=== PATIENT | female | born 1995 | race Caucasian/White ===

== ENCOUNTER 2021-05-14 18:34 | Emergency (ER) | payer SELFPAY | END 2021-05-14 22:04 | disposition left against medical advice (07) | PROVIDERS: Emergency Provider Emergency Medicine; PCP Nurse Practitioner Family | DX: R21 Rash and other nonspecific skin eruption (principal) ==

== ENCOUNTER 2021-05-29 15:21 | Emergency (ER) | payer OTHER, SELFPAY ==
[2021-05-29 16:14] VITALS: BP 129/87; PULSE 76; RESP 18; TEMP 36.7; O2SAT 100; BMI 26.2
[2021-05-29] MEDS: Acetaminophen 325 MG TABLET 650 MG PO (20:14)
--- NOTE | 2021-05-29 20:18 | ED_ITS ---
HPI - Headache General Chief Complaint: Headache Stated Complaint: migraine Time Seen by Provider: 05/29/21 17:24 Source: patient Mode of arrival: ambulatory Limitations: no limitations History of Present Illness MD elicited complaint: headache and migraine Pertinent past history: migraines Onset (ago): day(s) (4) Onset description: gradually Location: frontal Severity: moderate Quality & Timing: throbbing Exacerbating factors: movement of head/neck, light and noise Relieving factors: nothing Context: occurred at rest Associated symptoms: nausea, vomiting and photophobia Treatments prior to arrival: none Related Data Previous Rx's Medication Instructions Recorded [id number]-[id number]-mcayetnb 1 tab PO Q6H PRN #20 tab 05/29/21 50 mg-325 mg-40 mg tablet cyclobenzaprine 10 mg tablet 10 mg PO TID PRN #14 tab 05/29/21 ondansetron 4 mg disintegrating 4 mg PO Q8H PRN #20 tab 05/29/21 tablet Allergies Allergy/AdvReac Type Severity Reaction Status Date / Time No Known Allergies Allergy Verified 05/29/21 16:13 Review of Systems Review of Systems: Constitutional : No Fever, No Chills, No Fatigue ENT/Mouth : No sore throat, No Rhinorrhea Eyes: No Eye Pain, No Swelling, No Redness, pos photophobia Cardiovascular : No Chest Pain, No SOB, No Dyspnea on Exertion Respiratory : No Cough, No Sputum Gastrointestinal : pos Nausea, pos Vomiting, pos Diarrhea, No abdominal Pain Genitourinary : No Dysuria, No Urinary Frequency, No Hematuria, Musculoskeletal : No joint pain, No Myalgias, No Joint Swelling Skin : No Skin Lesions, No rash Neuro : No Weakness, No Numbness, No Dizziness, positive Headache Psych : No Anxiety/Panic, No Depression Heme/Lymph: No Bruising, No Bleeding,No Lymphadenopathy Endocrine : No Polyuria, No Polydipsia All other systems reviewed and are negative [facility] Past Medical History Attestation statement: The following information was validated with the patient. Medical History Migraines Social History Social History (Updated 05/29/21 @ 20:37 by Sonya Vigil DO) Patient Tobacco Use Status: Never used Tobacco Use of substances other than those prescribed or required for medical reasons: No Advance Directives: Yes Advance Directives Information Provided: Yes Advance Directives on File: No Patient : No Physical Exam Vital Signs: Vital Signs: Last Vital Signs Temp 98.1 F 05/29/21 16:14 Pulse 76 05/29/21 16:14 Resp 18 05/29/21 16:14 BP 129/87 05/29/21 16:14 Pulse Ox 100 05/29/21 16:14 Body Mass Index 26.2 Appearance: Alert. Oriented X3. No acute distress. Eyes: Pupils equal, round and reactive to light. ENT: Pharynx normal. Neck: Normal inspection. Neck supple. no meningeal signs CVS: Normal heart rate and rhythm. Pulses normal. Respiratory: No respiratory distress. Breath sounds normal. Abdomen: Soft and non-tender. Skin: Skin warm and dry. Normal skin color. Normal skin turgor. Extremities: No lower extremity edema. No calf ttp Neuro: Oriented X 3. No motor deficit. No sensory deficit. Course Course Course Narrative: feels better stable for DC MDM - Headache MDM Narrative Medical decision making narrative: 25 yo female no AC therapy here with c/o migraine headache for 4 days no fevers, no AC therapy hx of same in the past - typical migraine at this time will hydrate and provider medications, dispo per improvement given features doubt SAH/[employer] infection. Discharge Plan Discharge Clinical Impression: Migraine Qualifiers: Migraine type: without aura Status migrainosus presence: without status migrai nosus Intractability: not intractable Qualified Code(s): G43.009 - Migraine without aura, not intractable, without status migrainosus Patient Disposition: Home, Self-Care Instructions: Migraine Headache (ED) Additional Instructions: return to ED for any worsening symptoms or concerns topiramate can help prevent daily headaches Prescriptions: New cyclobenzaprine 10 mg tablet 10 mg PO TID PRN (Reason: muscle spasm) Qty: 14 RF: 0 fwfwurfjce-usjubbczdtsxx-tfrd 50-325-40 mg tablet 1 tab PO Q6H PRN (Reason: pain) Qty: 20 RF: 0 ondansetron 4 mg tablet,disintegrating 4 mg PO Q8H PRN (Reason: nausea and vomiting) Qty: 20 RF: 0 Stand Alone Forms: Work/School Release
[2021-05-29] MEDS: diphenhydrAMINE HCL 50 MG/ML VIAL 25 MG IVPUSH (20:53)
[2021-05-29] MEDS: Ketorolac Tromethamine 15 MG/ML VIAL 30 MG IVPUSH (20:55)
[2021-05-29] MEDS: Metoclopramide HCl 10 MG/2 ML VIAL IVPUSH (20:58)
[2021-05-29] MEDS: 0.9 % Sodium Chloride 1,000 ML 999 ML IV (21:02)
[2021-05-29 21:32] VITALS: RESP 16
== END 2021-05-29 22:14 | disposition home or self-care (01) ==
PROVIDERS: Emergency Provider Emergency Medicine
DX: G43.009 Migraine without aura, not intractable, without status migrainosus (principal)
CPT/HCPCS: 96361; 96374; 96375; 99283; 99284; J1200; J1885; J2765

== ENCOUNTER → 2022-03-05 14:05 | Outpatient (BNVA) | payer SELFPAY | DX: Z02.83 Encounter for blood-alcohol and blood-drug test (principal) ==

== ENCOUNTER 2025-07-13 13:19 | Outpatient (REF) | payer OTHER, SELFPAY ==
--- OUTSIDE RECORDS SUMMARY | 2025-07-12 13:15 | XMS_ITS | Encounter Summary ---
Author Organization [employer] Address [address] [place] [address] 7 [place] [address] Care Team Providers Care Infrastructure Technician Name Role Phone Wanda Urena Primary Care Provider [phone] Reason for Visit * Reason Comments Annual Exam Facial Pain Encounter Details Date Type Department Care Team ([facility] st Contact Info) Description 07/12/2025 1:15 PM EST Office Visit [facility] [address], [place] [phone] Wanda Urena FNP [address] [place] [address] Encounter for routine history and physical examination of adult (Primary Dx); Healthcare maintenance; Migraine without status migrainosus, not intractable, unspecified migraine type; Dietary counseling; Exercise counseling; Carrier of spinal muscular atrophy; History of spinal fusion for scoliosis; Acute non-recurrent frontal sinusitis Social History Tobacco Use Types Packs/Day Years Used Date Smoking Tobacco: Never Smokeless Tobacco: Never Tobacco Cessation:Counseling Given: Not Answered Depression Answer Date Recorded Patient Health Questionnaire-9 Score 0 07/12/2025 Patient Health Questionnaire-9 Score 0 07/12/2025 Last PHQ-9: Questionnaire Data Not on file 1 Housing Stability Answer Date Recorded What is your housing situation today? I have jarvis nowak 07/02/[address] you li ve. Do you have problems with any of the following? None of the above 07/02/2024 Food Insecurity Answer Date Recorded Within the past 12 months, y ou worried that your food would run out before you got money to buy more: Never True 07/02/2024 Within the past 12 months,th e food you bought just didn't last and you didn't have enough money to get more: Never True Transportation Answer Date Recorded In the past 12 months, has l ack of transportation kept you from medical appts, meetings, work or from getting things needed for daily living? No 07/02/2024 Utilities Answer Date Recorded In the past 12 months, has t he electric, gas, oil or water company threatened to shut off services in your home? No 07/02/2024 Depression Answer Date Recorded Patient Health Questionnaire-2 Score 0 07/12/2025 Internet Access Answer Date Recorded Internet Access Q1 Yes 07/02/2024 Internet Access Q2 Not on file 07/02/2024 Comments No Intention Date Recorded No desire to become (finding) 1 Sex and Gender Information Value Date Recorded Sex Assigned at Female 05/14/2022 10:17 AM EDT Legal Sex Female 10:17 AM EDT Gender Identity Female 05/14/2022 10:17 AM EDT Sexual Orientation Straight 05/14/2022 10 :17 AM EDT documented as of this encounter Last Filed Vital Signs Vital Sign Reading Time Taken Comments Blood Pressure 113/75 07/12/2025 1:29 PM EST Pulse 82 07/12/2025 1:29 PM EST Temperature 36.2 C (97.1 F) 07/12/2025 1:29 PM EST Respiratory Rate 18 07/12/2025 1:29 PM EST Oxygen Saturation - - Inhaled Oxygen Concentration - - Weight 93 kg (205 lb) 07/12/2025 1:29 PM EST Height 166.4 cm (5' 5.5 ) 07/12/2025 1:29 PM EST Body Mass Index 33.59 07/12/2025 1:29 PM EST documented in this encounter Functional Status * SBIRT - Alcohol Question Answer Date of Assessment Author How many times in the past y ear have you had 5 or more (for men) or 4 or more (for women) drinks in a day? 0 07/12/2025 1:27 PM EST Conchita Watts MA Score 0 07/12/2025 1:27 PM Conchita Elena MA * SBIRT - Drugs Question Answer Date of Assessment Author How many times in the past y ear have you used an illegal drug or used a prescription medication for non-medical reasons? 0 07/12/2025 1:27 PM Conchita Elena MA Score 0 07/12/2025 1:27 PM Conchita Elena MA * Over the past 2 weeks, how often have you been bothered by any of the following problems? Question Answer Date of Assessment Author Patient Health Questionnaire -2 Score 0 07/12/2025 2:03 PM Wanda Perez F [employer] * Little interest or pleasure in doing things Answer Date of Assessment Author Not at all 07/12/2025 2:03 PM EST Romel, N icole, [employer] * Feeling down, depressed, or hopeless Answer Date of Assessment Author Not at all 07/12/2025 2:03 PM EST Romel, N icole, [employer] * Trouble falling or staying asleep, or sleeping too much Answer Date of Assessment Author Not at all 07/12/2025 2:03 PM EST Romel, N icole, [employer] * Feeling tired or having little energy Answer Date of Assessment Author Not at all 07/12/2025 2:03 PM EST Phalen, N icole, [employer] * Poor appetite or overeating Answer Date of Assessment Author Not at all 07/12/2025 2:03 PM EST Kennyen, N icole, [employer] * Feeling bad about yourself - or that you are a failure or have let yourself or your family down Answer Date of Assessment Author Not at all 07/12/2025 2:03 PM EST Romel, N icole, [employer] * Trouble concentrating on things, such as reading the newspaper or watching television Answer Date of Assessment Author Not at all 07/12/2025 2:03 PM EST Phalen, N icole, [employer] * Moving or speaking so slowly that other people could have noticed? Or the opposite - being so fidgety or restless that you have been moving around a lot more than usual. Answer Date of Assessment Author Not at all 07/12/2025 2:03 PM EST Romel, N icole, [employer] * Thoughts that you would be better off or hurting yourself in some way Answer Date of Assessment Author Not at all 07/12/2025 2:03 PM Robert Perez FNP * Patient Health Questionnaire-9 Score Answer Date of Assessment Author 0 07/12/2025 2:03 PM Robert Perez FNP documented as of this encounter Progress Notes * BOAZ Chavez - 07/12/2025 1:15 PM EST Subjective: Latrice Melissa is a 29 y.o. female who presents to the office for a Physical Exam. HPI: Last PCP visit; 07/10/24 for Transfer Patient visit Gave to baby girl since our last appointment, they are doing well Migraines: occurring ~1x/month. Currently using APAP/ibuprofen, but sumatriptan was more helpful previously. Updated prescription sent to pharmacy Sinus pressure/tenderness x 7 days. Associated symptoms include nasal congestion and mild cough. NoF/C/N/V/D. Has tried OTC antihistamine, mucinex, intranasal flonase, and nasal saline rinses w/o significant improvement. Does not feel as though improving. Patient Active Problem List Diagnosis Migraine without status migrainosus, not intractable History of spinal fusion for scoliosis Carrier of spinal muscular atrophy Healthcare maintenance Past Surgical History: Procedure Laterality Date SPINE SURGERY Indication: Scoliosis WISDOM TOOTH EXTRACTION Family History Problem Relation Diabetes type II Mother Hypertension Mother Migraines Mother Fibromyalgia Mother Arthritis Mother No Known Problems Father Diabetes type II Maternal Grandmother Dementia Maternal Grandmother Other (heart surgery) Paternal Grandmother Social History Living situation: lives with boyfriend and daughter 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 Diet/exercise: gym 5x/week - combination cardio and strength training. Healthy, well-balanced diet.1500 katherine/day. Substance use: none (no alcohol, tobacco, opioids, marijuana, cocaine) Sexual activity: male partner. No IPV concerns. Contraception: POP Mental health: no concerns. Denies SI/HI/thoughts of self harm Patient's last menstrual period was 07/10/2025 (exact date). No Known Allergies - Avoids shellfish Review of Systems Constitutional: Negative for chills, fatigue and fever. HENT: Positive for congestion and sinus pressure. Negative for sore throat. Eyes: Negative for visual disturbance. Respiratory: Positive for cough. Negative for shortness of breath and wheezing. Cardiovascular: Negative for chest pain and palpitations. Gastrointestinal: Negative for constipation, diarrhea, nausea and vomiting. Skin: Negative for rash. Psychiatric/Behavioral: Negative for suicidal ideas. Visit Vitals BP 113/75 (BP Location: Left arm, Patient Position: Sitting, BP Cuff Size: Large adult) Pulse 82 Temp 97.1 ??F (36.2 ??C) (Temporal) Resp 18 Ht 5' 5.5 (1.664 m) Wt 205 lb (93 kg) LMP 07/10/2025 (Exact Date) BMI 33.59 kg/m?? OB Status Having periods Smoking Status Never BSA 2.07 m?? Physical Exam Constitutional: Appearance: Normal appearance. HENT: Head: Atraumatic. Right Ear: Tympanic membrane, ear canal and external ear normal. Left Ear: Tympanic membrane, ear canal and external ear normal. Nose: Congestion present. Right Sinus: Frontal sinus tenderness present. Left Sinus: Frontal sinus tenderness present. Mouth/Throat: Pharynx: No posterior oropharyngeal erythema. Eyes: Extraocular Movements: Extraocular movements intact. Conjunctiva/sclera: Conjunctivae normal. Pupils: Pupils are equal, round, and reactive to light. Cardiovascular: Rate and Rhythm: Normal rate and regular rhythm. Pulmonary: Effort: Pulmonary effort is normal. Breath sounds: Normal breath sounds. Abdominal: Palpations: Abdomen is soft. Musculoskeletal: Cervical back: Neck supple. No tenderness. Neurological: Mental Status: She is alert and oriented to person, place, and time. Psychiatric: Mood and Affect: Mood normal. Behavior: Behavior normal. 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 Current Assessment & Plan - Identified during testing Health Encounters Healthcare maintenance Overview Pap: NILM, HPV neg 02/28/24 Optometry: [facility] (10/27/24) - wears glasses Last Physical: 07/12/25 Current Assessment & Plan - Up to date with routine cancer screening - Routine lab work ordered including asymptomatic STI screening Relevant Orders Lipid Panel, Standard Hemoglobin A1c TSH with Reflex to Free T4 Comprehensive Metabolic Panel CBC auto differential HIV-1/2 Antigen and Antibodies, Fourth Generation, with Reflexes RPR (Monitor) with Reflex to Titer Hepatitis C Antibody with Reflex to HCV, RNA, Quantitative, Real-Time PCR Chlamydia/Trichomonas/Neisseria gonorrhoeae, PCR, Urine Hepatitis B Core Antibody, Total Hepatitis B Surface Antibody, Qualitative Hepatitis B surface antigen, EIA Musculoskeletal and Injuries History of spinal fusion for scoliosis Current Assessment & Plan - Reports completed around 2008 at [facility] for indication of scoliosis Neuro Migraine without status migrainosus, not intractable Current Assessment & Plan - Approx 1x/month - Restart on sumatriptan 50mg PRN Relevant Medications SUMAtriptan (Imitrex) 50 MG tablet Other Visit Diagnoses Encounter for routine history and physical examination of adult - Primary -Cardiopulmonary exam WNL -Encouraged healthy lifestyle habits including routine physical exercise and diet rich in fruits and vegetables Dietary counseling Exercise counseling Acute non-recurrent frontal sinusitis - No significant improvement after 7 days of symptoms, has tried wide array of symptomatic management - Suspicion for bacterial etiology. Start Augmentin BID. Reviewed med safety and SE. - F/up precuations Relevant Medications loratadine (Claritin) 10 MG tablet amoxicillin-clavulanate (Augmentin) 875-125 MG tablet Follow up: 3 months migraines, labs, wt management. Sooner as needed Current Outpatient Medications Medication Sig Dispense Refill amoxicillin-clavulanate (Augmentin) 875-125 MG tablet Take 1 tablet by mouth 2 times daily for 5 days. 10 tablet 0 loratadine (Claritin) 10 MG tablet Take 1 tablet (10 mg) by mouth Once per day. 90 tablet 3 norethindrone (Micronor) 0.35 MG tablet Take 1 tablet (0.35 mg) by mouth Once per day. 90 tablet 3 SUMAtriptan (Imitrex) 50 MG tablet Take 1 tablet (50 mg) by mouth 1 (one) time if needed for migraine. May repeat dose once in 2 hours if no relief. Do not exceed 2 doses in 24 hours. 9 tablet 3 No current facility-administered medications for this visit. Immunization History Administered Date(s) Administered DTaP 1995, 01/06/1996, 02/25/1996, 06/24/1996, 12/10/1996, 10/03/1999 HPV, Quadrivalent 05/27/2007, 09/02/2007, 06/17/2008 Hep A, Adult 07/28/2018 Hep A, ped/adol, 2 dose 04/03/2013 Hep B, Adolescent or Pediatric 1995, 1995, 02/25/1996 Hib (HbOC) 1995, 01/06/1996, 06/24/1996, 12/10/1996 IPV 1995, 01/06/1996, 06/24/1996, 10/03/1999 Influenza injectable quadrivalent IIV4 with preservative 04/29/2020 Influenza injectable quadrivalent preservative free 03/26/2022 Influenza, IIV3, injectable 04/23/2024 Influenza, Split (incl. purified surface antigen) 04/03/2013 Influenza, seasonal, injectable, preservative free 04/23/2024 MMR 09/23/1996, 10/03/1999 Meningococcal MCV4P ACYW-135 04/07/2007, 07/28/2018 Moderna Covid-19 Vaccine 12+ 11/16/2020, 12/13/2020, 08/01/2021 Mumps 1995 Tdap 04/07/2007, 03/26/2022, 07/02/2024 Varicella 03/06/2004, 04/07/2007 documented in this encounter Miscellaneous Notes * Assessment & Plan Note - BOAZ Chavez - 07/13/2025 9:37 AM ESTAssociated Problem(s): History of spinal fusion for scoliosis - Reports completed around 2008 at [facility] for indication of scoliosis * Assessment & Plan Note - BOAZ Chavez - 07/13/2025 9:37 AM ESTAssociated Problem(s): Carrier of spinal muscular atrophy - Identified during testing * Assessment & Plan Note - BOAZ Chavez - 07/13/2025 9:37 AM ESTAssociated Problem(s): Healthcare maintenance - Up to date with routine cancer screening - Routine lab work ordered including asymptomatic STI screening * Assessment & Plan Note - BOAZ Chavez - 07/12/2025 1:50 PM ESTAssociated Problem(s): Migraine without status migrainosus, not intractable - Approx 1x/month - Restart on sumatriptan 50mg PRN documented in this encounter Plan of Treatment Upcoming Encounters Date Type Department Care Team (Late st Contact Info) Description 10/11/2025 4:00 PM EDT Office Visit [facility] [address], [place] [phone] Wanda Urena FNP [address] [place] [address] Scheduled Orders Name Type Priority Associated Diagnoses Orde r Schedule HIV-1/2 Antigen and Antibodies, Fourth Generation, with Reflexes Lab Routine Healthcare maintenance Expected: 07/12/2025 (Approximate), Expires: 07/12/2026 RPR (Monitor) with Reflex to Titer Lab Routine Healthcare maintenance Expected: 07/12/2025, Expires: 07/12/2026 Hepatitis C Antibody with Reflex to HCV, RNA, Quantitative, Real-Time PCR Lab Routine Healthcare maintenance Expected: 07/12/2025, Expires: 07/12/2026 Chlamydia/Trichomonas/Nei sseria gonorrhoeae, PCR, Urine Lab Routine Healthcare maintenance Expected: 07/12/2025 (Approximate), Expires: 07/12/2026 Hepatitis B Core Antibody, Total Lab Routine Healthcare maintenance Expected: 07/12/2025 (Approximate), Expires: 07/12/2026 Hepatitis B Surface Antibody, Qualitative Lab Routine Healthcare maintenance Expected: 07/12/2025 (Approximate), Expires: 07/12/2026 Hepatitis B surface antigen, EIA Lab Routine Healthcare maintenance Expected: 07/12/2025 (Approximate), Expires: 07/12/2026 documented as of this encounter Procedures Procedure Name Priority Date/Time Associated Diagnosis Comments TSH W/REFLEX TO FT4 Routine 07/13/2025 1 :23 PM EST Healthcare maintenance CBC WITH AUTO DIFFERENTIAL Routine 07/13/2025 1:23 PM EST Healthcare maintenance HEMOGLOBIN A1C Routine 07/13/2025 1:23 PM EST Healthcare maintenance LIPID PANEL, STANDARD Routine 07/13/2025 1:23 PM EST Healthcare maintenance COMPREHENSIVE METABOLIC PANEL Routine 07/13/2025 1:23 PM EST Healthcare maintenance documented in this encounter Results * (ABNORMAL) CBC auto differential (07/13/2025 1:23 PM EST) White Blood Count 5.2 4.8 - 10.8 X10*3/uL [facility] Red Blood Count 4.68 4.20 - 5.50 X10*6/uL [facility] Hemoglobin 11.7(L) 12.0 - 16.0 g/dl [facility] Hematocrit 37.5 37.0 - 47.0 % [facility] Mean Corpuscular Volume 80.1 80.0 - 98.0 fL [facility] Mean Corpuscular Hemoglobin 25.0(L) 27.0 - 33.0 pg [facility] Mean Corpuscular HGB Conc 31.2 31.0 - 35.0 g/dl [facility] Red Cell Distribution Width 15.7 11.0 - 16.0 % [facility] Platelet Count 301 160 - 400 X10*3/uL [facility] Mean Platelet Volume 10.3 9.4 - 12.3 fL [facility] Neutrophils Percent Auto 48.0 45 - 73 % [facility] Imm Gran Pct Auto 0.2 0.0 - 0.4 % [facility] Lymphocytes Percent Auto 41.3(H) 20 - 40 % [facility] Monocytes Percent Auto 8.2 2 - 11 % [facility] Eosinophils Percent Auto 1.7 0 - 4 % [facility] Basophils Percent Auto 0.6 0 - 2 % [facility] NRBC Pct Auto 0.0 0.0 - 0.2 /100WBC [facility] Neutrophils Absolute Auto 2.5 2.0 - 8.3 x10*3/uL [facility] Imm Gran Abs Auto 0.01 0.00 - 0.03 X10*3/uL [facility] Lymphocytes Absolute Auto 2.2 1.2 - 4.9 X10*3/uL [facility] Monocytes Absolute Auto 0.4 0.1 - 1.2 X10*3/uL [facility] Eosinophils Absolute Auto 0.1 0.0 - 0.4 X10*3/uL [facility] Basophils Absolute Auto 0.0 0.0 - 0.2 X10*3/uL [facility] NRBC Abs Auto 0.000 0.0 - 0.012 X10*3/uL [facility] Blood Venous blood specimen / Unknown 07/13/2025 1:23 PM EST 07/13/2025 3:06 PM EST us Wanda Urena [employer] LAB BLOOD ORDERABLES Final Res ult [facility] [address] [place] [phone] * (ABNORMAL) Comprehensive Metabolic Panel (07/13/2025 1:23 PM EST) Sodium 140 135 - 145 mmol/L [facility] Potassium 3.9 3.3 - 5.1 mmol/L [facility] Chloride 111(H) 96 - 108 mmol/L [facility] Carbon Dioxide 25 22 - 29 mmol/L [facility] Anion Gap 8(L) 12 - 20 [facility] Urea Nitrogen (BUN) 10 9 - 16 mg/dL [facility] Creatinine, Serum 0.73 0.5 - 1.4 mg/dL [facility] Estimated Glomerular Filt Rate >60 [facility] Comment:Chronic Kidney Disea se: Estimated GFR < 60 mL/min/[id number] Kidney Disease: Estimated GFR < 15 mL/min/1.73m2 Glucose 80 60 - 115 mg/dL [facility] Calcium 9.0 8.4 - 10.2 mg/dL [facility] Bilirubin, Total 0.2 0.0 - 1.0 mg/dL [facility] Aspartate Amino Transferase 34(H) 5 - 31 U/L [facility] Alanine Aminotransferase 19 0 - 31 U/L [facility] Total Protein 6.9 6.5 - 8.0 g/dL [facility] Albumin Level 4.1 3.5 - 5.0 g/dL [facility] Alkaline Phosphatase 92 39 - 117 U/L [facility] Blood Venous blood specimen / Unknown 07/13/2025 1:23 PM EST 07/13/2025 3:10 PM EST Wanda Urena [facility] BLOOD ORDERABLES Final Res ult Performing Organization Address City/[facility]/ZIP Co de Phone Number [facility] [address] [place] [address] [phone] * TSH with Reflex to Free T4 (07/13/2025 1:23 PM EST) TSH reflex Free T4 1.77 0.32 - 4.0 uIU/mL [facility] Blood 07/13/2025 1:23 PM EST 07/13/2025 3:10 PM EST Wanda [employer] [facility] BLOOD ORDERABLES Final Res ult Performing Organization Address [facility]/ZIP Co de Phone Number [facility] [address] [place] [phone] * Hemoglobin A1c (07/13/2025 1:23 PM EST) Hemoglobin A1c 5.7 <6.0 % [facility] Comment:Hemoglobin A1C Refer ence Range Adults: 4.8 - 6.0 % Non diabetic: < 6.0 % Goal: < 7.0 %Additional Action Suggested: > 8.0 %Note: Hemoglobin A1c results are invalid for patients with abnormal amounts of HbF. Blood transfusions may impact the HbA1c concentration in the patient sample. Estimated Average Glucose 117 mg/dL [facility] Comment:eAG = Estimated ave rage glucose which is %A1C expressed asaverage glucose, using the formula of the [id number] Glucose study (ADAG), Diabetes Care, Vol.31,#8,2007 Blood Venous blood specimen / Unknown 07/13/2025 1:23 PM EST 07/13/2025 3:06 PM EST us Wanda Urena [employer] LAB BLOOD ORDERABLES Final Res ult [facility] [address] [place] [phone] * Lipid Panel, Standard (07/13/2025 1:23 PM EST) Triglycerides 90 <150 mg/dL [facility] Comment:Desirable Triglyceri de: less than 150 mg/dLBorderline High Triglyceride 150-199 mg/dLHigh Triglyceride: 200-499 mg/dLVery High Triglyceride: greater than or equal to 5OO mg/dL Cholesterol 140 <200 mg/dL [facility] Comment:Desirable Cholestero l: less than 200 mg/dLBorderline High Cholesterol: 200-239 mg/dLHigh Cholesterol: greater than 239 mg/dL LDL Cholesterol Calculated 81 <100 mg/dL [facility] Comment:Desirable LDL: less than 100 mg/dLNear Optimal/Above Optimal LDL: 110- 129 mg/dLBorderline High LDL: 130-159 mg/dLHigh LDL: 160-189 mg/dLVery High LDL: greater than or equal to 190 mg/dL HDL Cholesterol 41 >40 mg/dL [facility] Comment:Desirable HDL: great er than 40 mg/dL Note: This HDL assay may give artificially low results in patients with liver disease. Blood Venous blood specimen / Unknown 07/13/2025 1:23 PM EST 07/13/2025 3:10 PM EST Wanda SANDRA LAB BLOOD ORDERABLES Final Res ult [facility] [address] [place] [phone] documented in this encounter Visit Diagnoses Diagnosis Encounter for routine history and physical examination of adult- Primary Healthcare maintenance Migraine without status migrainosus, not intractable, unspecified migraine type Dietary counseling Dietary surveillance and counseling Exercise counseling Carrier of spinal muscular atrophy History of spinal fusion for scoliosis Acute non-recurrent frontal sinusitis documented in this encounter Additional Health Concerns Assessment Noted Time PHQ-9 Depression Total Score: 0 07/12/20 25 2:03 PM EST documented as of this encounter Care Teams Infrastructure Technician Relationship Specialty Start Date End Date Wanda Urena FNP [address] [place] [phone] PCP - General Family Medicine 03/12/22 documented as of this encounter
[2025-07-13 15:11] LABS: MANUAL DIFF FLAG NO
[2025-07-13 15:16] LABS: Hematocrit 37.5 % (37.0-47.0); Hemoglobin 11.7 g/dl (12.0-16.0); Imm Gran Abs Auto 0.01 X10*3/uL (0.00-0.03); Imm Gran Pct Auto 0.2 % (0.0-0.4); Lymphocytes Absolute Auto 2.2 X10*3/uL (1.2-4.9); Mean Corpuscular HGB Conc 31.2 g/dl (31.0-35.0); Mean Corpuscular Hemoglobin 25.0 pg (27.0-33.0); Mean Corpuscular Volume 80.1 fL (80.0-98.0); NRBC Abs Auto 0.000 X10*3/uL (0.0-0.012); NRBC Pct Auto 0.0 /100WBC (0.0-0.2); Platelet Count 301 X10*3/uL (160-400); Red Blood Count 4.68 X10*6/uL (4.20-5.50); White Blood Count 5.2 X10*3/uL (4.8-10.8)
[2025-07-13 16:01] LABS: Alanine Aminotransferase 19 U/L (0-31); Albumin Level 4.1 g/dL (3.5-5.0); Alkaline Phosphatase 92 U/L (39-117); Anion Gap 8 (12-20); Aspartate Amino Transferase 34 U/L (5-31); Blood Urea Nitrogen 10 mg/dL (9-16); Calcium 9.0 mg/dL (8.4-10.2); Carbon Dioxide 25 mmol/L (22-29); Chloride 111 mmol/L (96-108); Cholesterol 140 mg/dL (<200); Estimated Glomerular Filt Rate > 60; HDL Cholesterol 41 mg/dL (>40); Potassium 3.9 mmol/L (3.3-5.1); Sodium 140 mmol/L (135-145); Total Protein 6.9 g/dL (6.5-8.0); Triglycerides 90 mg/dL (<150)
--- OUTSIDE RECORDS SUMMARY | 2025-07-13 17:14 | XMS_ITS | Data Portability ---
Author Organization [facility]HEUS [facility]bs [address] Address [address] [place] [address] Assessment Encounter Date Assessment Date Assessment LastModified by Organization Details LastModified Time 09/08/2022 09/08/2022 Patient was seen in the office today for nausea. Reviewed history regarding recent illness, medications, symptoms, and physical exam. Studies ordered as below. Discussed plan with patient, who expresses understanding . Follow up as noted below. terry Not available 09/08/2022 11:41:22 Plan of Treatment Reminders Order Date Submit Date Provider Last Modified By Organization Details Last Modified Time Details Appointments None recorded. Lab urinalysis , dipstick 2022 023 terry _[facility], [address] [place] [address], [phone], 3 11:41:44 test, urine 2022 023 terry [facility], [address] [place] [address], [phone], 3 11:41:44 culture, urine 2022 023 [facility], [address] [place] [address], [place], [address], 3 10:06:15 Referral None recorded. Procedures None recorded. Surgeries None recorded. Imaging None recorded. Medication Orders Macrobid 100 mg capsule 2022 023 DANE [id number], [address] [place], [address], 11:42:23 Patient TargetsNo targets recorded. Patient Instructions Encounter Date Encounter Id Patient Instructions Last Modified By Organization Details Last Modified Time 09/08/2022 [id number] nausea and vomiting: care instructions Not available 09/08/2022 11:41:44 We recommend you get a repeat urinalysis in 2 weeks to ensure that any abnormalities have resolved. If urine abnormalities persist, you will likely need further testing or treatment. We will contact you within 3 to 5 days with the results of your lab test. If you have not heard back from us within that time frame, please feel free to contact our office regarding your results. Go to the Emergency Department immediately if your symptoms worsen or if you develop new symptoms that concern you. Drink plenty of fluids You should follow-up with your PCP in 4-5 days, or at any time if your condition does not improve or worsens. Any acute change should prompt a visit to the nearest Emergency Department. Try small amounts of clear liquids frequently. If vomiting occurs, wait 30-60 minutes before trying clear liquids again. Once you are able to tolerate clear liquids for at least 6 hours without vomiting, you can advance to a soft diet consisting of foods such as bananas, rice, applesauce, toast, crackers, and other foods rich in carbohydrates and low on fats and spices. If the diet is tolerated for 12-24 hours, you can slowly add other foods to your diet. If vomiting occurs, you should go back to clear liquids only and work your way back to a normal diet as outlined above. If much worse, you should seek treatment immediately. Not available 09/08/2022 11:43:25 Diarrhea is defined as at least 3 watery or loose stools per day. Diarrhea is usually self-limited, viral and stops on its own in 3-10 days. The greatest risk of diarrhea is dehydration. Consume plenty of liquids and foods that are bland and have salt (as long as you do not have high blood-pressure or CHF). If you tolerate them, consuming healthy, higher fat foods which slow-down digestion, such as hummus, avocado, whole eggs, nuts, olive oil and alfredo seeds, may improve your symptoms. Avoid DAIRY because this can make it worse because some viruses cause a temporary lactose intolerance. Take probiotics which may help replenish bacteria lost through diarrhea. If you are not improving, were recently hospitalized and may have C.Diff and/or traveled out of the country, follow-up with your primary care physician because he/she may want to do additional tests that we do not usually order at [facility]. No tests are normally needed in the first 2 weeks of diarrhea. terry Not available 09/08/2022 11:43:04 Reason for Referral None Reported. Results Created Date Observation Date Name Description Value Unit Range Abnormal Flag Note LastModifiedBy Organization Detail LastModifiedTime 09/08/1909/10/2022 URINE CULTU REXIN urine culture, routine FINAL REPORT Not Available [facility] ([facility]) [address] [place], [address], 09/10/2022 10:06:15 09/08/19 23 09/10/2022 URINE CULTU REXIN NE result 1 COMMEN T Mixed uroge nital kevin 10,00 0-25, 000 colon y formi ng units per mL Not Available [facility] ([facility]) [address] [facility], [place], [address], 09/10/2022 10:06:15 09/08/19 23 09/08/2022 pregn annemarie test, urine Unknown Analyte Normal = Negati ve Not Available reina woodard [address], [address], 09/08/2022 11:08:35 09/08/19 23 09/08/2022 pregn annemarie test, urine Unknown Analyte negati ve Not Available _reina [address] [place], [address], 09/08/2022 11:08:35 09/08/19 23 09/08/2022 urina lysis , dipst ick Unknown Analyte Normal = light yellow Not Available reina [address] [place], [address], 09/08/2022 11:08:28 09/08/19 23 09/08/2022 urina lysis , dipst ick Unknown Analyte Light Yellow Not Available reina woodard [address], [place], [address], 09/08/2022 11:08:28 09/08/19 23 09/08/2022 urina lysis , dipst ick Unknown Analyte Normal = clear Not Available reina woodard [address], [place], [address], 09/08/2022 11:08:28 09/08/19 23 09/08/2022 urina lysis , dipst ick Unknown Analyte Slight ly Cloudy Not Available reina woodard [address], [place], [address], 09/08/2022 11:08:28 09/08/19 23 09/08/2022 urina lysis , dipst ick Unknown Analyte Normal = negati ve Not Available reina woodard [address], [place], [address], 09/08/2022 11:08:28 09/08/19 23 09/08/2022 urina lysis , dipst ick Unknown Analyte Negati ve Not Available reina woodard [address], [place], [address], 09/08/2022 11:08:28 09/08/19 23 09/08/2022 urina lysis , dipst ick Unknown Analyte Normal = Negati ve Not Available riena woodard [address], [place], [address], 09/08/2022 11:08:28 09/08/19 23 09/08/2022 urina lysis , dipst ick Unknown Analyte Negati ve Not Available reina woodard [facility], [place], [address], 09/08/2022 11:08:28 09/08/19 23 09/08/2022 urina lysis , dipst ick Unknown Analyte Normal = Negati ve Not Available [address]reina woodard [address], [place], [address], 09/08/2022 11:08:28 09/08/19 23 09/08/2022 urina lysis , dipst ick Unknown Analyte Negati ve Not Available reina woodard [address], [place], [address], 09/08/2022 11:08:28 09/08/19 23 09/08/2022 urina lysis , dipst ick Unknown Analyte Normal = 1.010, 1.015, 1.020 Not Available [facility] [address], [place], [address], 09/08/2022 11:08:28 09/08/19 23 09/08/2022 urina lysis , dipst ick Unknown Analyte 1.025 Not Available [address], [place], [address], 09/08/2022 11:08:28 09/08/19 23 09/08/2022 urina lysis , dipst ick Unknown Analyte Normal = Negati ve Not Available [facility] [address], [place], [address], 09/08/2022 11:08:28 09/08/19 23 09/08/2022 urina lysis , dipst ick Unknown Analyte Trace- intact Not Available reina woodard [address], [place], [address], 09/08/2022 11:08:28 0209/08/2022 urina lysis , dipst ick Unknown Analyte Normal = 6.5, 7.0, 7.5, 8.0 Not Available reina woodard [address], [place], [address], 09/08/2022 11:08:28 09/08/19 23 09/08/2022 urina lysis , dipst ick Unknown Analyte 7.0 Not Available [address], [place], [address], 09/08/2022 11:08:28 09/08/19 23 09/08/2022 urina lysis , dipst ick Unknown Analyte Normal = Negati ve Not Available reina [address], [place], [address], 09/08/2022 11:08:28 09/08/19 23 09/08/2022 urina lysis , dipst ick Unknown Analyte Negati ve Not Available reina [address], [place], [address], 09/08/2022 11:08:28 09/08/19 23 09/08/2022 urina lysis , dipst ick Unknown Analyte Normal = 0.2, 1.0 Not Available [facility] [address], [place], [address], 09/08/2022 11:08:28 09/08/19 23 09/08/2022 urina lysis , dipst ick Unknown Analyte 0.2 E.U./d L Not Available reina [address], [place], [address], 09/08/2022 11:08:28 09/08/19 23 09/08/2022 urina lysis , dipst ick Unknown Analyte Normal = Negati ve Not Available [facility] [address] [place], [address], 09/08/2022 11:08:28 09/08/1909/08/2022 urina lysis , dipst ick Unknown Analyte Negati ve Not Available [address] [place], [address], 09/08/2022 11:08:28 09/08/1909/08/2022 urina lysis , dipst ick Unknown Analyte Normal = Negati ve Not Available [address]reina woodard [address], [place], [address], 09/08/2022 11:08:28 09/08/1909/08/2022 urina lysis , dipst ick Unknown Analyte Small Not Available [address] [place], [address], 09/08/2022 11:08:28 Result Notes None recorded. Problems No Known Problems Procedures Surgical History Date Name Laterality Status Provider Name and Address Organization Details Recorded Time correction of scoliosis completed Lori Fisher [employer] - Cynny 09/08/2022 10:55:45 Imaging Results None recorded. Procedure Notes None recorded. Medical Equipment None Reported. Allergies No known drug allergies Medications Name Sig Start Date Stop Date Status Note LastModified by Organization Details LastModified Time Macrobid 100 mg capsule Take 1 capsule every 12 hours by oral route with meals for 7 days. 023 active Not Available Not Available Not Avai lable Ashley Allergy active Not Available Not Available Not Available Vitals Date Recorded Body height Body mass index (BMI) Body weight Pain severity - 0-10 verbal numeric rating [Score] - Reported Oxygen saturation Heart rate Respiratory rate Body temperature Systolic And Diastolic Provider Name and Address Organization Details Last Updated DateTime 3 170.18 cm 26.6 kg/m2 39240.7 g 0 100 % 61 /min 18 /min 98 [degF] 108/77 mm[Hg] Lori Fisher PA - [facility] 10:57:40 Social History Question Answer Notes LastModified by Organizat ion Details LastModified Time Tobacco Smoking Status Never Smoker Lori castro, PA - [facility] 09/08/2022 10:55:22 Have You Recently Traveled Abroad? No Information not available 09/08/2022 Sex: Unknown Functional Status Question Answer Note LastModified by Organizat ion Details LastModified Time Do you use any illicit or recreational drugs? No Information not available 09/08/2022 What is your level of alcohol consumption? None Information not available 09/08/2022 Mental Status None recorded. Family History Relationship Description Onset Age of this Age Resolved Age Notes LastModified by Organization Details LastModified Time Father No current problems or disability [email or web address] Not available 09/08 10:55:07 Mother No current problems or disability [email or web address] Not available 09/08 10:55:07 Medical History No medical history recorded. Gynecological HistoryNo gynecological history recorded. Obstetrics History GPAL:G 0 P 0 0 0 0 Immunizations Vaccine Type Date Status Note Provider Nam e and Address Organization Details Recorded Time Influenza, split virus, quadrivalent, preservative 0 completed Lori Fisher null, PA - [facility] 09/08/2022 10:54:20 IPV 0 completed Lori Fisher null, PA - [facility] 09/08/2022 10:54:20 IPV 6 completed Lori Fisher null, PA - [facility] 09/08/2022 10:54:20 IPV 6 completed Lori Fisher null, PA - [facility] 09/08/2022 10:54:20 IPV 6 completed Lori Fisher null, PA - [facility] 09/08/2022 10:54:20 MMR 7 completed Lori Fisher null, PA - [facility] 09/08/2022 10:54:20 MMR 0 completed Lori Fisher null, PA - [facility] 09/08/2022 10:54:20 COVID-19, mRNA, LNP-S, PF, 100 mcg/0.5mL dose or 50 mcg/0.25mL dose 2 completed Lori Monfette null, PA - [facility] 09/08/2022 10:54:20 COVID-19, mRNA, LNP-S, PF, 100 mcg/0.5mL dose or 50 mcg/0.25mL dose 1 completed Lori Monfette null, PA - [facility] 09/08/2022 10:54:20 COVID-19, mRNA, LNP-S, PF, 100 mcg/0.5mL dose or 50 mcg/0.25mL dose 1 completed Lori Monfette null, PA - [facility] 09/08/2022 10:54:20 mumps 6 completed Lori Monfette null, PA - [facility] 09/08/2022 10:54:20 Tdap 2 completed Lori Monfette null, PA - [facility] 09/08/2022 10:54:20 Tdap 7 completed Lori Monfette null, PA - [facility] 09/08/2022 10:54:20 varicella 4 completed Lori Monfette null, PA - [facility] 09/08/2022 10:54:20 varicella 7 completed Lori Monfette null, PA - [facility] 09/08/2022 10:54:20 influenza, split (incl. purified surface antigen) 3 completed Lori Monfette null, PA - [facility] 09/08/2022 10:54:20 HPV, quadrivalent 8 completed Lori Monfette null, PA - [facility] 09/08/2022 10:54:20 HPV, quadrivalent 7 completed Lori Monfette null, PA - [facility] 09/08/2022 10:54:20 HPV, quadrivalent 8 completed Lori Monfette null, PA - [facility] 09/08/2022 10:54:20 Hep B, adolescent or pediatric 6 completed Lori Monfette null, PA - [facility] 09/08/2022 10:54:20 Hep B, adolescent or pediatric 6 completed Lori Monfette null, PA - [facility] 09/08/2022 10:54:20 Hep B, adolescent or pediatric 6 completed Lori Monfette null, PA - [facility] 09/08/2022 10:54:20 Hep A, adult 9 completed Lori Monfette null, PA - [facility] 09/08/2022 10:54:20 Hep A, ped/adol, 2 dose 3 completed Lori Monfette null, PA - [facility] 09/08/2022 10:54:20 Hib (HbOC) 6 completed Lori Monfette null, PA - [facility] 09/08/2022 10:54:21 Hib (HbOC) 7 completed Lori Monfette null, PA - [facility] 09/08/2022 10:54:21 Hib (HbOC) 6 completed Lori Monfette null, PA - [facility] 09/08/2022 10:54:21 Hib (HbOC) 6 completed Lori Monfette null, PA - [facility] 09/08/2022 10:54:21 meningococcal MCV4P 9 completed Lori Monfette null, PA - [facility] 09/08/2022 10:54:21 meningococcal MCV4P 7 completed Lori Monfette null, PA - [facility] 09/08/2022 10:54:21 DTaP 0 completed Lori Monfette null, PA - [facility] 09/08/2022 10:54:21 DTaP 6 completed Lori Monfette null, PA - [facility] 09/08/2022 10:54:21 DTaP 7 completed Lori Monfette null, PA - [facility] 09/08/2022 10:54:21 DTaP 6 completed Lori Monfette null, PA - [facility] 09/08/2022 10:54:21 DTaP 6 completed Lori Monfette null, PA - [facility] 09/08/2022 10:54:21 DTaP 6 completed Lori Monfette null, PA - [facility] 09/08/2022 10:54:21 Influenza, split virus, quadrivalent, PF 2 completed Lori Monfette null, PA - [facility] 09/08/2022 10:54:21 Past Encounters Encounter ID Performer Location Encounter Start Date Encounter Closed Date Diagnosis/Indication Diagnosis SNOMED-CT Code Diagnosis ICD10 Code Diagnosis IMO Codes Diagnosis Note [id number] [address] [place] [address] 03/10/2020 15:23:59 03/10/2020 17:19:59 [id number] [address] [place] [address] 03/10/2020 15:28:05 03/10/2020 17:20:03 [id number] [address] [place] [address] 05/14/2021 13:39:27 05/14/2021 14:45:35 [id number] [address] [place] [address] 10/10/2021 15:14:10 10/10/2021 17:01:26 [id number] [address] [place] [address] 06/27/2019 09:54:50 06/27/2019 11:02:31 [id number] Louis Medrano NP [address] [facility] [place] [address] 09/08/2022 09:03:27 09/08/2022 11:47:00 Acute urinary tract infection 838841072 N39.0 Nausea, vo miting and diarrhea [id number] R19.7 Health Concerns Section Related Observation LastModified by Organization Detai ls LastModified Time None Recorded Concern Status LastModified by Organization Details LastModified Time None Recorded Advance Directives Directive None Recorded Payers Insurance Date Sequence Insurance Name Policy Number Policy Barone Covered Member ID Barone Member ID Guarantor Name 09/08/2022 PROMPT PAY Es maruriageronimo Belén 09/08/[address] [place] [address] [place] [id number] Latrice Belén [id number] Latrice Belén 09/08/2022 [facility] Latrice Belén Latrice Belén 06/13/2022 GENERIC WORKER'S COMP (MOVED TO HOLD) [facility] Med Generic (Move To Hold) [[id number]] Latrice Belén Notes Date Note Type Note Provider Name and Address Organization Details Recorded Time 09/08/2022 text/html Nausea / Vomitin g UCReported by PatientHPI:For context, patient reportspossible food sourcebut reportsno one else with similar symptoms,no recent travel, andno well water. For associated symptoms, patient reportsabdominal painanddiarrheabut reportsno fever,no chills,no heartburn,no dark tarry stools, andno fatigue. For source of patient information, patient reportsinformation obtained from patientandpatient arrived at urgent care ambulatory. For severity, patient reportsmild. For duration, patient reports5 days. For onset/timing, patient reportsintermittent. For alleviating factors, patient reportsnothing gives relief. For aggravating factors, patient reportsnothing makes it worse. Louis Medrano NP [address] [place], [address], PA - [facility] 09/08/2022 11:45:02 OBGyn Episode No OBEpisode recorded.
--- OUTSIDE RECORDS SUMMARY | 2025-07-13 17:14 | XMS_ITS | Encounter Summary ---
Author Organization [employer] Address [address] [place] [address] Care Team Providers Care Framing Machine Tender Name Role Phone Wanda Urena BOAZ Primary Care Provider [phone] Encounter Details Date Type Department Care Team (Latest Contact Info) Description 07/11/2025 Travel Social History Tobacco Use Types Packs/Day Years Used Date Smoking Tobacco: Never Smokeless Tobacco: Never Depression Answer Date Recorded Patient Health Questionnaire-9 [...] Access Q2 Not on file 07/02/2024 Comments Unknown Sex and Gender Information Value Date Recorded Sex Assigned at Female 05/14/2022 10:17 AM EDT Legal Sex Female 10:17 AM EDT Gender Identity Female 05/14/2022 10:17 AM EDT Sexual Orientation Straight 05/14/2022 10 :17 AM EDT documented as of this encounter Plan of Treatment Upcoming Encounters Date Type Department Care Team (Late st Contact Info) Description 10/11/2025 4:00 PM EDT Office Visit [facility] [address] [place] [address] Wanda Urena FNP [address] [place] [address] documented as of this encounter Visit Diagnoses Not on filedocumented in this encounter Additional Health Concerns Assessment Noted Time PHQ-9 Depression Total Score: 2 07/10/20 24 2:58 PM EST documented as of this encounter Care Teams Framing Machine Tender Relationship Specialty Start Date End Date Wanda Urena FNP [address] [place] [address] PCP - General Family Medicine 03/12/22 documented as of this encounter
--- OUTSIDE RECORDS SUMMARY | 2025-07-13 17:14 | XMS_ITS | Encounter Summary ---
Author Organization [employer] Address [address] [place] [address] Care Team Providers Care Associate Professor Of Communication Name Role Phone KennyWanda hopper BOAZ Primary Care Provider [phone] Encounter Details Date Type Department Care Team ([facility] st Contact Info) Description 07/10/2024 Orders Only [facility] [address] [place], [place] [id number] Provider, MD Wiliam Social History Tobacco Use Types Packs/Day Years Used Date Smoking Tobacco: Never Smokeless Tobacco: Never Depression Answer Date Recorded Patient Health Questionnaire-9 Score 2 07/10/2024 Patient Health Questionnaire-9 Score 2 07/10/2024 Last PHQ-9: Questionnaire Data Not on file 1 09/10/2023 Housing Stability Answer Date Recorded What is [...] Date Recorded Patient Health Questionnaire-2 Score 0 07/10/2024 Internet Access Answer Date Recorded Internet Access Q1 Yes 07/02/2024 Internet Access Q2 Not on file 07/02/2024 Comments Yes Sex and Gender Information Value Date Recorded Sex Assigned at Female 05/14/2022 10:17 AM EDT Legal Sex Female 10:17 AM EDT Gender Identity Female 05/14/2022 10:17 AM EDT Sexual Orientation Straight 05/14/2022 10 :17 AM EDT documented as of this encounter Plan of Treatment Upcoming Encounters Date Type Department Care Team (Late st Contact Info) Description 10/11/2025 4:00 PM EDT Office Visit [facility] [address] [place], [place] [phone] Wanda Urena FNP [address] [place] [address] documented as of this encounter Procedures Procedure Name Priority Date/Time Associated Diagnosis Comments HM PAP/HPV Routine 02/28/2024 7:23 PM EDT documented in this encounter Results * HM PAP/HPV (02/28/2024 7:23 PM EDT) us Historical Provider HEALTH MAINTENANCE Final Result documented in this encounter Visit Diagnoses Not on filedocumented in this encounter Additional Health Concerns Assessment Noted Time PHQ-9 Depression Total Score: 2 07/10/20 24 2:58 PM EST documented as of this encounter Care Teams Associate Professor Of Communication Relationship Specialty Start Date End Date Wanda Urena FNP [address] [place] [address] PCP - General Family Medicine 03/12/22 documented as of this encounter
--- OUTSIDE RECORDS SUMMARY | 2025-07-13 17:15 | XMS_ITS | Encounter Summary ---
Author Organization [employer] Address [address] [facility] [address] [place] [address] Care Team Providers Care Vacuum Tester Cans Name Role Phone Wanda Urena BOAZ Primary Care Provider [phone] Encounter Details Date Type Department Care Team (Latest Contact Info) Description 07/12/2025 Travel Social History Tobacco Use Types Packs/Day [...] Q2 Not on file 07/02/2024 Comments No Sex and Gender Information Value Date Recorded Sex Assigned at Female 05/14/2022 10:17 AM EDT Legal Sex Female 10:17 AM EDT Gender Identity Female 05/14/2022 10:17 AM EDT Sexual Orientation Straight 05/14/2022 10 :17 AM EDT documented as of this encounter Plan of Treatment Upcoming Encounters Date Type Department Care Team (Late st Contact Info) Description 10/11/2025 4:00 PM EDT Office Visit [facility] [address] [place] [address] Wanda Urena FNP [address] [place] [address] documented as of this encounter Visit Diagnoses Not on filedocumented in this encounter Additional Health Concerns Assessment Noted Time PHQ-9 Depression Total Score: 0 07/12/20 25 2:03 PM EST documented as of this encounter Care Teams Vacuum Tester Cans Relationship Specialty Start Date End Date Wanda Urena FNP [address] [place] [address] PCP - General Family Medicine 03/12/22 documented as of this encounter
--- OUTSIDE RECORDS SUMMARY | 2025-07-13 17:15 | XMS_ITS | Clinical Summary ---
Author Organization [employer] Address [address] [facility] 7 [place] [address] Care Team Providers Care Building Mover Name Role Phone KennyWanda hopper BOAZ Primary Care Provider [phone] Allergies No known active allergies Medications loratadine (Claritin) 10 MG tablet Take 1 tablet (10 mg) by mouth Once per day. 90 tablet 3 07/12/20 25 Active norethindrone (Micronor) 0.35 MG tablet Take 1 tablet (0.35 mg) by mouth Once per day. 90 tablet 3 07/12/20 25 Active SUMAtriptan (Imitrex) 50 MG tabletIndicatio ns:Migraine without status migrainosus, not intractable, unspecified migraine type Take 1 tablet (50 mg) by mouth 1 (one) time if needed for migraine. May repeat dose once in 2 hours if no relief. Do not exceed 2 doses in 24 hours. 9 tablet 3 07/12/20 25 Active amoxicillin-cla vulanate (Augmentin) 875-125 MG tabletIndicatio ns:Acute non-recurrent frontal sinusitis Take 1 tablet by mouth 2 times daily for 5 days. 10 tablet 07/12/20 25 026 Active doxylamine (Unisom) 25 MG tablet Take 25 mg by mouth. 04/23/20 24 025 Discontinued(Th erapy completed) famotidine (Pepcid) 20 MG tablet Take 1 tablet by mouth 2 times daily. 04/23/20 24 025 Discontinued( erapy completed) loratadine (Claritin) 10 MG tablet Take 1 tablet by mouth Once per day. 06/18/20 24 025 Discontinued(Re order (will not trigger notification to Pharmacy)) Vit-Fe Fumarate-FA (M- Plus) 27-1 MG tablet Take 1 tablet by mouth Once per day. 02/10/20 24 025 Discontinued(Re order (will not trigger notification to Pharmacy)) Vit-Fe Fumarate-FA (M-Darian Plus) 27-1 MG tablet Take 1 tablet by mouth Once per day. 90 tablet 1 07/12/20 25 025 Discontinued(Th erapy completed) norethindrone (Micronor) 0.35 MG tablet Take 1 tablet by mouth Once per day. 09/13/19 25 025 Discontinued(Re order (will not trigger notification to Pharmacy)) Active Problems Problem Noted Date Diagnosed Date Healthcare maintenance 07/12/2024 Overview (07/13/2025): Pap: NILM, HPV neg 02/28/24 Optometry: [facility] (10/27/24) - wears glasses Last Physical: 07/12/25 Assessment & Plan (07/13/2025 9:37 AM EST): - Up to date with routine cancer screening - Routine lab work ordered including asymptomatic STI screening Carrier of spinal muscular atrophy 07/10/2024 Assessment & Plan (07/13/2025 9:37 AM EST): - Identified during testing Assessment & Plan (07/12/2024 10:09 AM EST): - Identified during testing Migraine without status migrainosus, not intract able 01/09/2024 Assessment & Plan (07/13/2025 9:37 AM EST): - Approx 1x/month - Restart on sumatriptan 50mg PRN Assessment & Plan (07/12/2024 10:07 AM EST): - previously taking sumatriptan PRN - reconsider starting med following delivery/ History of spinal fusion for scoliosis 9 Assessment & Plan (07/13/2025 9:37 AM EST): - Reports completed around 2008 at [facility] for indication of scoliosis Assessment & Plan (07/12/2024 10:16 AM EST): - Reports completed around 2008 at [facility] for indication of scoliosis - Latrice planning to request records from [facility], may also need to contact [facility] directly Resolved Problems Problem Noted Date Diagnosed Date Resolved Date History of severe acute resp iratory syndrome coronavirus 2 (SARS-CoV-2) disease 10/05/202007/10 Encounters Date Type Department Care Team Description 07/12/2025 1:15 PM EST Office Visit [facility] [address] [place] [address] Wanda Urena FNP Encounter for routine history and physical examination of adult (Primary Dx); Healthcare maintenance; Migraine without status migrainosus, not intractable, unspecified migraine type; Dietary counseling; Exercise counseling; Carrier of spinal muscular atrophy; History of spinal fusion for scoliosis; Acute non-recurrent frontal sinusitis 07/12/2025 Travel 07/11/2025 Travel 07/07/2025 Telephone [facility] [address] [place] [address] Wanda Urena FNP Chart Prep 07/01/2025 Patient Outreach [facility] [address] [place] [address] Wanda Urena FNP Pre-visit Planning (SDOH negative, Tobacco screening negative. ) from Last 3 Months Immunizations Immunization Administration Dates Next Due DTaP 10/03/1999, 7,06/24/1996,02/24,01/06/1996,1995 HPV, Quadrivalent 06/17/2008,09/02/2007,05/27/20 07 Hep A, Adult 07/28/2018 Hep A, ped/adol, 2 dose 04/03/2013 Hep B, Adolescent or Pediatric 02/25/1996,1995,1995 Hib (HbOC) 12/10/1996, 6,01/06/1996,10/23 IPV 10/03/1999, 6,01/06/1996,10/23 Influenza injectable quadriv alent IIV4 with preservative 04/29/2020 Influenza injectable quadriv alent preservative free 03/26/2022 Influenza, IIV3, injectable 04/23/2024 Influenza, Split (incl. fer fied surface antigen) 04/03/2013 Influenza, seasonal, injecta ble, preservative free 04/23/2024 MMR 10/03/1999,09/23/1996 Meningococcal MCV4P ACYW-135 07/28/2018,04/07/20 07 Mumps 1995 Tdap 07/02/2024,03/26/2022,04/07/2007 Varicella 04/07/2007,03/06/2004 Family History Medical History Relation Name Comments No Known Problems Father Dementia Maternal Grandmother Diabetes type II Maternal Grandmother Arthritis Mother Diabetes type II Mother Fibromyalgia Mother Hypertension Mother Migraines Mother heart surgery Paternal Grandmother Relation Name Status Comments Father Maternal Grandmother Mother Paternal Grandmother Social History Tobacco Use Types Packs/Day Years [...] Orientation Straight 05/14/2022 10 :17 AM EDT Last Filed Vital Signs Vital Sign Reading Time Taken Comments Blood Pressure 113/75 07/12/2025 1:29 PM EST Pulse 82 07/12/2025 1:29 PM EST Temperature 36.2 C (97.1 F) 07/12/2025 1:29 PM EST Respiratory Rate 18 07/12/2025 1:29 PM EST Oxygen Saturation 99% 07/10/2024 2:55 PM EST Inhaled Oxygen Concentration - - Weight 93 kg (205 lb) 07/12/2025 1:29 PM EST Height 166.4 cm (5' 5.5 ) 07/12/2025 1:29 PM EST Body Mass Index 33.59 07/12/2025 1:29 PM EST Plan of Treatment Upcoming Encounters Date Type Department Care Team (Late st Contact Info) Description 10/11/2025 4:00 PM EDT Office Visit [facility] [address] [place] [address] Wanda Urena, BOAZ [address] [place] [address] Health Maintenance Due Date Last Done Comments Influenza Vaccine (#1) 2026 , 04/23/2024, 03/26/2022, Additional history exists Postponed from 03/15/2025 (Patient Refused) SDOH Screening 07/01/2026 07/01/2025 Alcohol/Substance Use Screening 07/12/2026 07/12/2025 COVID-19 Vaccine ( season) 2026 08/01/2021, 12/13/2020, 11/16/2020 Postponed from 03/15/2025 (Patient Refused) Depression Screening 07/12/2026 07/12/2025, 07/12/20 Disability Screening 07/12/2026 07/12/2025 Diabetes: Hemoglobin A1C 07/13/2026 07/13/2025 Family Planning (PISQ) 07/13/2026 07/13/2025 Tobacco Screening 07/13/2026 07/13/2025 Pap Smear 02/27/2027 02/28/2024, 07/04/2021 DTaP/Tdap/Td Vaccines (9 - Td or Tdap) 07/02/2034 07/02/2024, 03/26/2022, 04/07/2007, Additional history exists Zoster Vaccines (1 of 2) 2045 RSV Patients and Patients Aged 60 years or older (1 - 1-dose 75+ series) 2070 Hepatitis B Vaccines Completed 02/25/1996, 1995, 1995 HIB Vaccines Completed 12/10/1996, 06/14, 01/06/1996, Additional history exists IPV Vaccines Completed 10/03/1999, 06/14, 01/06/1996, Additional history exists HPV Vaccines Completed 06/17/2008, 08/15, 05/27/2007 Hepatitis A Vaccines Completed 07/28/2018, 04/03/20 13 Meningococcal Vaccine Aged Out 07/28/2018, 007 No longer eligible based on patient's age to complete this topic HIV Screening Completed 07/04/2021 Hepatitis C Screening Completed 07/04/2021 Meningococcal B Vaccine Aged Out No l onger eligible based on patient's age to complete this topic Pneumococcal Vaccine: Pediatrics (0 to 5 Years) and At-Risk Patients (6 to 49) Years Aged Out No longer eligible based on patient's age to complete this topic RSV under 20 months Aged Out No longe r eligible based on patient's age to complete this topic Rotavirus Vaccines Aged Out No longer eligible based on patient's age to complete this topic Procedures Procedure Name Priority Date/Time Associated Diagnosis Comments CBC WITH AUTO DIFFERENTIAL Routine 07/13/2025 1:23 PM EST Healthcare maintenance COMPREHENSIVE METABOLIC PANEL Routine 07/13/2025 1:23 PM EST Healthcare maintenance TSH W/REFLEX TO FT4 Routine 07/13/2025 1 :23 PM EST Healthcare maintenance HEMOGLOBIN A1C Routine 07/13/2025 1:23 PM EST Healthcare maintenance LIPID PANEL, STANDARD Routine 07/13/2025 1:23 PM EST Healthcare maintenance HM PAP/HPV Routine 02/28/2024 7:23 PM EDT ZZZ HISTORICAL HEPATITIS C AB W/REFL TO HCV RNA, QN, PCR Routine 07/04/2021 11:14 AM EST HIV 1/2 ANTIGEN/ANTIBODY, FOURTH GENERATION W/RFL Routine 07/04/2021 11:14 AM EST from Last 3 Months or Most Recently Relevant to Health Maintenance Results * TSH with Reflex to Free T4 (07/13/2025 1:23 PM EST) TSH reflex Free T4 1.77 0.32 - 4.0 uIU/mL [facility] Blood 07/13/2025 1:23 PM EST 07/13/2025 3:10 PM EST us Wanda Urena [facility]UROPSYCHIATRIST LAB BLOOD ORDERABLES Final Res ult [facility] [address] [place] [phone] * (ABNORMAL) CBC auto differential (07/13/2025 1:23 PM EST) White Blood Count 5.2 4.8 - 10.8 X10*3/uL [facility] Red Blood Count 4.68 4.20 - 5.50 X10*6/uL [facility] Hemoglobin 11.7(L) 12.0 - 16.0 g/dl [facility] Hematocrit 37.5 37.0 - 47.0 % [facility] Mean Corpuscular Volume 80.1 80.0 - 98.0 fL [facility] Mean Corpuscular Hemoglobin 25.0(L) 27.0 - 33.0 pg [facility] Mean Corpuscular HGB Conc 31.2 31.0 - 35.0 g/dl [facility] Red Cell Distribution Width 15.7 11.0 - 16.0 % [facility] Platelet Count 301 160 - 400 X10*3/uL [facility] Mean Platelet Volume 10.3 9.4 - 12.3 fL [facility] Neutrophils Percent Auto 48.0 45 - 73 % [facility] Imm Gran Pct Auto 0.2 0.0 - 0.4 % [facility] Lymphocytes Percent Auto 41.3(H) 20 - 40 % [facility] Monocytes Percent Auto 8.2 2 - 11 % [facility] Eosinophils Percent Auto 1.7 0 - 4 % [facility] Basophils Percent Auto 0.6 0 - 2 % [facility] NRBC Pct Auto 0.0 0.0 - 0.2 /100WBC [facility] Neutrophils Absolute Auto 2.5 2.0 - 8.3 x10*3/uL [facility] Imm Gran Abs Auto 0.01 0.00 - 0.03 X10*3/uL [facility] Lymphocytes Absolute Auto 2.2 1.2 - 4.9 X10*3/uL [facility] Monocytes Absolute Auto 0.4 0.1 - 1.2 X10*3/uL [facility] Eosinophils Absolute Auto 0.1 0.0 - 0.4 X10*3/uL [facility] Basophils Absolute Auto 0.0 0.0 - 0.2 X10*3/uL [facility] NRBC Abs Auto 0.000 0.0 - 0.012 X10*3/uL [facility] Blood Venous blood specimen / Unknown 07/13/2025 1:23 PM EST 07/13/2025 3:06 PM EST Wanda Urena [facility] BLOOD ORDERABLES Final Res ult Performing Organization Address [facility] Co de Phone Number [facility] [address] [place] [phone] * Hemoglobin A1c (07/13/2025 1:23 PM EST) Hemoglobin A1c 5.7 <6.0 % [facility] Comment:Hemoglobin A1C Refer ence Range Adults: 4.8 - 6.0 % Non diabetic: < 6.0 % Goal: < 7.0 %Additional Action Suggested: > 8.0 %Note: Hemoglobin A1c results are invalid for patients with abnormal amounts of HbF. Blood transfusions may impact the HbA1c concentration in the patient sample. Estimated Average Glucose 117 mg/dL [facility] Comment:eAG = Estimated ave rage glucose which is %A1C expressed asaverage glucose, using the formula of the [id number] Glucose study (ADAG), Diabetes Care, Vol.31,#8,Feb. 2007 Blood Venous blood specimen / Unknown 07/13/2025 1:23 PM EST 07/13/2025 3:06 PM EST Wanda Urena [facility] BLOOD ORDERABLES Final Res ult Performing Organization Address [facility] Co de Phone Number [facility] [address] [place] [phone] * Lipid Panel, Standard (07/13/2025 1:23 PM EST) Triglycerides 90 <150 mg/dL [facility] Comment:Desirable Triglyceri de: less than 150 mg/dLBorderline High Triglyceride 150-199 mg/dLHigh Triglyceride: 200-499 mg/dLVery High Triglyceride: greater than or equal to 5OO mg/dL Cholesterol 140 <200 mg/dL [facility] Comment:Desirable Cholestero l: less than 200 mg/dLBorderline High Cholesterol: 200-239 mg/dLHigh Cholesterol: greater than 239 mg/dL LDL Cholesterol Calculated 81 <100 mg/dL [facility] Comment:Desirable LDL: less than 100 mg/dLNear Optimal/Above Optimal LDL: 110- 129 mg/dLBorderline High LDL: 130-159 mg/dLHigh LDL: 160-189 mg/dLVery High LDL: greater than or equal to 190 mg/dL HDL Cholesterol 41 >40 mg/dL [facility] Comment:Desirable HDL: great er than 40 mg/dL Note: This HDL assay may give artificially low results in patients with liver disease. Blood Venous blood specimen / Unknown 07/13/2025 1:23 PM EST 07/13/2025 3:10 PM EST us Wanda Urena [facility]SYCHIATRIST LAB BLOOD ORDERABLES Final Res ult [facility] [address] [place] [phone] * (ABNORMAL) Comprehensive Metabolic Panel (07/13/2025 1:23 PM EST) Sodium 140 135 - 145 mmol/L [facility] Potassium 3.9 3.3 - 5.1 mmol/L [facility] Chloride 111(H) 96 - 108 mmol/L [facility] Carbon Dioxide 25 22 - 29 mmol/L [facility] Anion Gap 8(L) 12 - 20 [facility] Urea Nitrogen (BUN) 10 9 - 16 mg/dL [facility] Creatinine, Serum 0.73 0.5 - 1.4 mg/dL [facility] Estimated Glomerular Filt Rate >60 [facility] Comment:Chronic Kidney Disea se: Estimated GFR < 60 mL/min/[id number] Kidney Disease: Estimated GFR < 15 mL/min/1.73m2 Glucose 80 60 - 115 mg/dL [facility] Calcium 9.0 8.4 - 10.2 mg/dL [facility] Bilirubin, Total 0.2 0.0 - 1.0 mg/dL [facility] Aspartate Amino Transferase 34(H) 5 - 31 U/L [facility] Alanine Aminotransferase 19 0 - 31 U/L [facility] Total Protein 6.9 6.5 - 8.0 g/dL [facility] Albumin Level 4.1 3.5 - 5.0 g/dL [facility] Alkaline Phosphatase 92 39 - 117 U/L [facility] Blood Venous blood specimen / Unknown 07/13/2025 1:23 PM EST 07/13/2025 3:10 PM EST Wanda Romel NEUROPSYCHIATRIST LAB BLOOD ORDERABLES Final Res ult [facility] [address] [place] [phone] * HM PAP/HPV (02/28/2024 7:23 PM EDT) Historical Provider MD HEALTH MAINTENANCE Final Result * HEPATITIS C AB W/REFL TO HCV RNA, QN, PCR (07/04/2021 11:14 AM EST) HEPATITIS C ANTIBODY NON-REACT MIRIAN NON-REACT MIRIAN [facility] INDEX 0.13 <1.00 [facility] Comment: HCV antibody was non-reactive. There is no laboratory evidence of HCV infection. In most cases, no further action is required. However, if recent HCV exposure is suspected, a test for HCV RNA (test code 14765) is suggested. For additional information please refer to http://education.[employer].MediCard/faq/ARM79q1 (This link is being provided for informational/ educational purposes only.) 07/04/2021 11:1 4 AM EST Anne Carter NEUROPSYCHIATRIST HISTORICAL/NON ORDERABLE LABS Final Result Performing Organization Address City/[facility]/ZIP Co de Phone Number [facility] [address] * HIV 1/2 ANTIGEN/ANTIBODY,FOURTH GENERATION W/RFL (07/04/2021 11:14 AM EST) HIV-1/2 ANTIGEN AND ANTIBODIES, 4TH GENERATION W/ REFLEX NON-REACT MIRIAN NON-REACT MIRIAN [facility] Comment: HIV-1 antigen and HIV-1/HIV-2 antibodies were not detected. There is no laboratory evidence of HIV infection. PLEASE NOTE: This information has been disclosed to you from records whose confidentiality may be protected by state law. If your state requires such protection, then the state law prohibits you from making any further disclosure of the information without the specific written consent of the person to whom it pertains, or as otherwise permitted by law. A general authorization for the release of medical or other information is NOT sufficient for this purpose. For additional information please refer to http://education.[employer]uro.MediCard/faq/MKO629 (This link is being provided for informational/ educational purposes only.) The performance of this assay has not been clinically validated in patients less than 2 years old. 07/04/2021 11:1 4 AM EST us Anne Carter [facility] LAB BLOOD ORDERABLES Final Res ult [facility] [address] from Last 3 Months or Most Recently Relevant to Health Maintenance Insurance [facility] , [address] [place] [address] MORENA MARIN [phone] MORENA MARIN [id number] Care Teams Building Mover Relationship Specialty Start Date End Date Wanda Urena FNP [address] [place] [phone] PCP - General Family Medicine 03/12/22
--- OUTSIDE RECORDS SUMMARY | 2025-07-13 17:15 | XMS_ITS | Encounter Summary ---
Author Organization [employer] Address [address] [place] [address] Care Team Providers Care Director Chemistry Name Role Phone Wanda Urena Primary Care Provider [phone] Encounter Details Date Type Department Care Team (Late Contact Info) Description 11/26/2022 Abstract [facility] MED[facility] [address] [place] [address] Wanda Urena FNP [address] [place] [address] Social History Tobacco Use Types Packs/Day Years Used Date Smoking Tobacco: Never Assessed Comments Unknown Sex and Gender Information Value Date Recorded Sex Assigned at Female 05/14/2022 10:17 AM EDT Legal Sex Female 10:17 AM EDT Gender Identity Female 05/14/2022 10:17 AM EDT Sexual Orientation Straight 05/14/2022 10 :17 AM EDT documented as of this encounter Plan of Treatment Upcoming Encounters Date Type Department Care Team (Late Contact Info) Description 10/11/2025 4:00 PM EDT Office Visit [facility] [address] [place], [place] [phone] Wanda Urena FNP [address] [place], [place] [phone] documented as of this encounter Visit Diagnoses Not on filedocumented in this encounter Care Teams Director Chemistry Relationship Specialty Start Date End Date Wanda Urena FNP [address] [place] [address] PCP - General Family Medicine 03/12/22 documented as of this encounter
[2025-07-13 23:23] LABS: CT PCR Urine NOT DETECTED (Not Detect.); NG PCR Urine NOT DETECTED (Not Detect.)
[2025-07-14 03:50] LABS: HBS Num1 3.32 mIU/mL (0-7.99); HBc Num1 0.30 S/CO (0.00-0.79); HBsAGNum1 0.49 S/CO (0.00-0.99); HIV Num 1 0.07 S/CO (0.00-0.99); Hepatitis B Surface Antigen Negative (Negative); ~HepC Num1 0.54 S/CO (0.00-0.79); ~Hepatitis B Surface Antibody NONREACTIVE (Nonreactive); ~Hepatitis C Antibody Nonreactive (Nonreactive)
== END 2025-07-13 13:20 | disposition home or self-care (01) ==
LOC: HO.CHCLDS 13:19
PROVIDERS: Visit Provider Registered Nurse
DX: Z00.00 Encounter for general adult medical examination without abnormal findings (principal); Z20.2 Contact with and (suspected) exposure to infections with a predominantly sexual mode of transmission; Z11.4 Encounter for screening for human immunodeficiency virus [HIV]; Z13.1 Encounter for screening for diabetes mellitus; Z13.29 Encounter for screening for other suspected endocrine disorder; Z13.6 Encounter for screening for cardiovascular disorders
CPT/HCPCS: 80053; 80061; 83036; 84443; 85025; 86592; 86704; 86706; 86803; 87340; 87389; 87491; 87591